=== PATIENT | female | born 1965 | race Caucasian/White ===

== ENCOUNTER 2018-09-28 20:29 | Inpatient (IN) ==
[2018-09-28] MEDS ORDERED: MORPHINE IV ONE (20:45)
[2018-09-28] MEDS ORDERED: ZOFRAN IV ONE (20:45)
[2018-09-28 21:34] LABS: BASO# 0.07 X1000 (0.0-0.2); BASO% 1.8 % (0.0-0.8); EOS# 0.31 X1000 (0.0-0.7); EOS% 7.8 % (0.0-10.0); HEMOGLOBIN 9.4 g/dL (12.0-16.0); IMM GRAN# 0.01 X1000 (0.0-0.04); IMM GRAN% 0.3 % (0.0-0.5); LYMPH# 1.12 X1000 (1.2-3.4); LYMPH% 28.2 % (20.5-51.1); MCH 22.7 PG (27-31); MCHC 31.3 g/dL (33-37); MCV 72.5 FL (81-99); MONO# 0.28 X1000 (0.11-0.59); MONO% 7.1 % (1.7-9.3); MPV 10.3 FL (7.4-10.4); NEUT# 2.18 X1000 (1.4-6.5); NEUT% 54.8 % (42.2-75.2); PLT 419 X1000 (130-400); RBC 4.14 XMIL (4.2-5.4); RDW 22.8 % (11.5-14.5); WBC 3.97 X1000 (4.8-10.8)
[2018-09-28 21:41] LABS: INR 0.89; PROTIME 12.5 Seconds (11.0-16.0); PTT 31.1 Seconds (22.3-41.8)
--- NOTE | 2018-09-28 21:46 | Diag Imaging Result Doc PS360 ---
EXAM: CHEST-PORTABLE 09/28/2018 HISTORY: chest pain TECHNIQUE: AP portable at 0955 COMMENT: There is some atelectasis or fibrosis over both lung bases which was not present on 09/08/2017 and there is some blunting of the right costophrenic angle which was also not present previously. The heart size and pulmonary vascularity remain within normal limits. IMPRESSION: Minimal bibasilar atelectasis versus fibrosis. Small right pleural effusion. Electronically signed by Carlos Manuel Laird 09/28/2018 9:44 PM
[2018-09-28 21:52] LABS: AGAP 10; ALBUMIN 3.2 g/dL (3.5-5.0); ALKALINE PHOSPHATASE 74 U/L (32-104); BUN 8 mg/dL (8-22); CALCIUM 7.5 mg/dL (8.8-10.2); CHLORIDE 106 mmol/L (98-107); CK PROFILE 661 U/L (24-173); COSMO 277; CREATININE 0.8 mg/dL (0.5-0.9); ESTIMATED GFR > 60; GLUCOSE 83 mg/dL (70-104); GOT 20 U/L (10-30); GPT 6 U/L (10-36); POTASSIUM 4.1 mmol/L (3.5-5.1); SODIUM 140 mmol/L (136-145); TCO2 23 mmol/L (25-35); TOTAL BILIRUBIN < 0.15 mg/dL (0.20-1.00); TOTAL PROTEIN 5.9 g/dL (6.3-8.3)
[2018-09-28 22:34] LABS: CK INDEX 0.8 (0.0-2.5); CK-MB 5.05 ng/mL (0.0-5.0)
--- NOTE | 2018-09-28 22:41 | PROVIDER DOCUMENTATION ---
This chart was entered by Maddie West Scribe, acting as scribe for Stefania Lopez MD. HPI-Chest Pain - General Chief Complaint: Chest Pain Stated Complaint: CHEST PAIN Time Seen by Provider: 09/28/18 20:50 Source: patient Allergies/Adverse Reactions: Patient Allergies Allergy/AdvReac Type Severity Reaction Status Date / Time aspirin Allergy Mild RASH Verified 09/08/17 10:49 ketorolac tromethamine * Allergy Mild RASH Verified 09/08/17 10:49 [From Toradol] Home Medications: Home Medication List Medication Instructions Recorded Confirmed Last Taken Type Levothyroxine Sodium 200 mcg PO DAILY 05/06/17 09/08/17 Unknown History LISINOpril [Prinivil] 20 mg PO DAILY 05/10/17 09/08/17 Unknown History Alprazolam 1 mg PO TID PRN 09/08/17 09/08/17 Unknown History Clopidogrel [Plavix] 75 mg PO DAILY 09/08/17 09/08/17 Unknown History Duloxetine [Cymbalta] 60 mg PO DAILY 09/08/17 09/08/17 Unknown History Gabapentin 300 mg PO TID 09/08/17 09/08/17 Unknown History Lisinopril 20 mg PO DAILY #30 tab 09/08/17 Unknown Rx Quetiapine [Seroquel] 200 mg PO DAILY 09/08/17 09/08/17 Unknown History Trazodone [Desyrel] 50 mg PO QHS 09/08/17 09/08/17 Unknown History Ziprasidone [Geodon] 40 mg PO BID 09/08/17 09/08/17 Unknown History - History of Present Illness-CP Nature of Presenting Problem: Pt is 52/F presenting to ED w/ CP that started a couple of hrs [employer]. Pt sts that the pain was L sided and constant, it is rated a 10/10 and sharp. Pt has has SOB and sts that she has been very tired for the last few days. Hx of VA and has 3 stents. Location: reports: substernal Chest Pain Radiation: reports: no radiation Quality of Pain: reports: sharp, stabbing Severity in ED: moderate Onset/Duration: 1-3 hours ago Timing: still present Context/Activities at Onset: reports: none Modifying Factors: improves with: nothing Associated Symptoms: reports: shortness of breath Nitro Today/Relief: no nitro taken today Aspirin Treatment Today: no aspirin today Prior Chest Pain/Cardiac Workup: reports: heart attack Similar Symptoms Previously?: No Recently Seen Here or By Another Healthcare Provider: No Review of Systems - Adult - REVIEW OF SYSTEMS - ADULT Constitutional: reports: no symptoms reported. denies: chills, fever Eyes: reports: no symptoms reported Ears, Nose, Mouth & Throat: reports: no symptoms reported Cardiovascular: reports: chest pain Respiratory: reports: shortness of breath. denies: cough Gastrointestinal: reports: no symptoms reported Genitourinary: reports: no symptoms reported Musculoskeletal: reports: no symptoms reported Integumentary: reports: no symptoms reported Neurological: reports: no symptoms reported. denies: dizziness/vertigo, headache/migraines Psychiatric: reports: no symptoms reported Endocrine: reports: no symptoms reported Hematologic/Lymphatic: reports: no symptoms reported Allergic/Immunologic: reports: no symptoms reported All Other Systems: Reviewed and Negative Past History - Adult - PAST MEDICAL HISTORY-ADULT Review of Records: reports: Old Records Reviewed, Nursing Assessment Review, Medications Reviewed, Social history reviewed & non-contributory. Cardiovascular: reports: blood clots, CAD, CHF Psychiatric: reports: anxiety Endocrine/Immune: reports: cancer (thyroid), thyroid disorder - PRIOR SURGERIES/PROCEDURES Surgical/Procedure History: reports: appendectomy, cholecystectomy, cardiac stent, indwelling device (port-a-cath), other (thyroidecomty) - IMMUNIZATION STATUS Childhood Immunizations: See Nurse Assessment Flu Vaccine: See Nurse Assessment - FAMILY HISTORY Family History: reviewed, not pertinent - SOCIAL HISTORY Smoking: cigarettes, less than 1 pack/day Provider spent 3-5 mins advising pt. on dangers of tobacco.: Discussed manners to quit use, and f/u contacts for add'l counseling. Alcohol Use Frequency: never Living Situation: family Physical Exam-General - PHYSICAL EXAM-ADULT Initial Vital Signs Reviewed: Yes - CONSTITUTIONAL General Appearance: appears well, alert, moderate distress - EYES Eyes: PERRL/EOMI, pink conjunctivae - HEAD, EARS, NOSE, MOUTH & THROAT HENMT: normocephalic/atraumatic, moist mucous membranes, normal ENT inspection, TMs normal, pharynx normal - NECK Neck: non-tender, full range of motion, supple, normal inspection - RESPIRATORY Respiratory: lungs clear - CARDIOVASCULAR Cardiovascular: regular rate, rhythm - GASTROINTESTINAL (ABDOMEN) Abdominal Exam: non tender, soft - MUSCULOSKELETAL Extremity: normal range of motion, non-tender, normal gait, normal inspection - SKIN Integumentary: normal color, warm/dry - NEUROLOGIC Neurologic: grossly normal - PSYCHIATRIC Psych/Mental Status: normal mood/affect, normal thought content, normal thought process, oriented x 3 - HEART Score HEART Score: ECG: Normal HEART Score: Age: 45-65 Years Progress - PLAN OF CARE/RESULTS Progress/Plan/Lab Results: Vital Signs - 8 hr 09/28/18 20:15 Temperature 98.7 F Pulse Rate 87 Respiratory Rate 20 Blood Pressure 113/77 O2 Sat by Pulse Oximetry 86 L Laboratory Results - last 24 hr 09/28/18 09/28/18 09/28/18 21:10 21:10 21:10 WBC 3.97 L RBC 4.14 L Hgb 9.4 L Hct 30.0 L MCV 72.5 L MCH 22.7 L MCHC 31.3 L RDW Std Deviation 22.8 H Plt Count 419 H MPV 10.3 Immature Gran % (Auto) 0.3 Neut % (Auto) 54.8 Lymph % (Auto) 28.2 Gaines % (Auto) 7.1 Eos % (Auto) 7.8 Baso % (Auto) 1.8 H Immature Gran # (Auto) 0.01 Neut # (Auto) 2.18 Lymph # (Auto) 1.12 L Gaines # (Auto) 0.28 Eos # (Auto) 0.31 Baso # (Auto) 0.07 Segmented Neutrophils Not Reportable PT INR PTT (Actin FS) Sodium 140 Potassium 4.1 Chloride 106 Carbon Dioxide 23 L Anion Gap 10 BUN 8 Creatinine 0.8 Estimated GFR/1.73 m2 > 60 BUN/Creatinine Ratio 10 Glucose 83 Calculated Osmolality 277 Calcium 7.5 L Total Bilirubin < 0.15 L AST 20 ALT 6 L Alkaline Phosphatase 74 Creatine Kinase 661 H Creatine Kinase Index 0.8 CK-MB (CK-2) 5.05 H Troponin T Yle-H-Rogzqydqfnv Pept 261 H Total Protein 5.9 L Albumin 3.2 L Globulin 3.0 Albumin/Globulin Ratio 1.0 09/28/18 09/28/18 21:10 21:10 WBC RBC Hgb Hct MCV MCH MCHC RDW Std Deviation Plt Count MPV Immature Gran % (Auto) Neut % (Auto) Lymph % (Auto) Gaines % (Auto) Eos % (Auto) Baso % (Auto) Immature Gran # (Auto) Neut # (Auto) Lymph # (Auto) Gaines # (Auto) Eos # (Auto) Baso # (Auto) Segmented Neutrophils PT 12.5 INR 0.89 PTT (Actin FS) 31.1 Sodium Potassium Chloride Carbon Dioxide Anion Gap BUN Creatinine Estimated GFR/1.73 m2 BUN/Creatinine Ratio Glucose Calculated Osmolality Calcium Total Bilirubin AST ALT Alkaline Phosphatase Creatine Kinase Creatine Kinase Index CK-MB (CK-2) Troponin T < 0.010 Xzv-S-Dldmidhzfpi Pept Total Protein Albumin Globulin Albumin/Globulin Ratio Orders Category Date Time Status Cardiac Monitoring DIRECTED Care 09/28/18 20:21 Active Oxygen Therapy- ED Nursing DIRECTED Care 09/28/18 20:21 Active Saline Loc NOW Care 09/28/18 20:21 Active CHEST-PORTABLE [RAD] Stat Exams 09/28/18 20:30 Completed CBC WITH ELECTRONIC DIFF [HEME] Stat Lab 09/28/18 21:10 Completed CK PROFILE [SP CHEM] Stat Lab 09/28/18 21:10 Completed COMPREHENSIVE METABOLIC PANEL [CHEM] Stat Lab 09/28/18 21:10 Completed PRO B-NATRIURETIC PEPTIDE Stat Lab 09/28/18 21:10 Completed PROTIME WITH INR [COAG] Stat Lab 09/28/18 21:10 Completed PTT [COAG] Stat Lab 09/28/18 21:10 Completed TROPONIN T Stat Lab 09/28/18 21:10 Completed Morphine Med 09/28/18 20:45 Discontinued 4 mg IV NOW ONE Ondansetron [Zofran] Med 09/28/18 20:45 Discontinued 4 mg IV NOW ONE CP/SOB/Palp >45 yrs of Age Stat Oth 09/28/18 20:19 Ordered EKG [EKG] Stat Ther 09/28/18 20:21 Ordered Result Diagrams: 09/28/18 21:10 09/28/18 21:10 - REASSESSMENT Reassessment #1 Time Reassessed: 22:34 Status: worsening Reassessment Comment: was feeling better after morphine, but now pain is returning. Reassessment #2 Time Reassessed: 22:38 (I have spoken with Dr. Hoskins and we will admit for precaution) - EKG 1 Time of EKG reading by physician:: 20:12 EKG Read and Signed by:: Stefania Lopez EKG Interpretation (*Must complete 3 of following elements*): Normal (Normal sinus rhythm, normal ECG) Rate: 85 Rhythm: Sinus [place]: normal QRS: normal - CONSULTS/PCP/HOSPITALIST Notification #1 *Consult/PCP/Hospitalist*: [place] Time Discussed: 22:36 (will admit ) Consult Disposition: Admit Departure - Departure Date of Disposition Decision: 09/28/18 Time of Disposition Decision: 22:39 DIAGNOSIS: Chest pain Qualifiers: Chest pain type: precordial pain Qualified Code(s): R07.2 - Precordial pain Disposition: ADMITTED INPATIENT 09 Certified Medical Emergency: Emergent Condition: Fair Referrals and Follow-Ups: None,PCP [Primary Care Provider] - - Critical Care Note This patient required my direct & personal management of CC.: No Attestation - Physician/ PHONG Attestation The physician spent face to face time with patient:: Yes Advanced Practice Provider documentation review:: Supervising physician onsite and consulted in the evaluation and care of this patient. The physician did have a face to face encounter with the patient. This chart was documented by the indicated scribe, (Maddie West, Scribe) and accurately reflects the services I performed and decisions made by me, Stefania Lopez MD, as attested by the provider's signature.
[2018-09-28] MEDS ORDERED: MORPHINE IV PRN (22:43)
[2018-09-28] MEDS ORDERED: ZOFRAN IV PRN (22:43)
--- NOTE | 2018-09-28 23:41 | EKG Report ---
Test Performed on : 09/28/2018 8:12:50 PM Test Reason : chest pain Blood Pressure : / mmHG Vent. Rate : 085 BPM Atrial Rate : 085 BPM P-R Int : 180 ms QRS Dur : 080 ms QT Int : 380 ms P-R-T Axes : 076 058 084 degrees QTc Int : 452 ms Normal sinus rhythm. Normal ECG When compared with ECG of 08-SEP-2017 12:28, Nonspecific T wave abnormality, improved in Anterolateral leads Unconfirmed Result
[2018-09-29] MEDS: MORPHINE IV PRN ×6 (00:49→12:44)
[2018-09-29] MEDS: NITROGLYCERIN SL PRN (00:50)
[2018-09-29] MEDS: ZOFRAN IV PRN ×2 (06:10→10:20)
[2018-09-29] MEDS ORDERED: XANAX PO PRN ×2 (07:09→07:15)
[2018-09-29] MEDS: SYNTHROID PO SCH (07:39)
[2018-09-29 07:51] LABS: HEMATOCRIT 29.7 % (37.0-47.0); MCH 22.1 PG (27-31); MCHC 30.3 g/dL (33-37); MPV 9.9 FL (7.4-10.4); RBC 4.07 XMIL (4.2-5.4); RDW 23.1 % (11.5-14.5); WBC 4.05 X1000 (4.8-10.8)
[2018-09-29] MEDS: GEODON PO SCH ×2 (08:09→21:21)
[2018-09-29] MEDS: PLAVIX PO SCH (08:09)
[2018-09-29] MEDS: PRINIVIL PO SCH (08:09)
[2018-09-29] MEDS: CYMBALTA PO SCH (08:09)
[2018-09-29] MEDS: NEURONTIN PO SCH ×3 (08:09→21:21)
[2018-09-29 09:20] LABS: AGAP 10; ALBUMIN 3.2 g/dL (3.5-5.0); BUN 7 mg/dL (8-22); CALCIUM 7.3 mg/dL (8.8-10.2); CHLORIDE 106 mmol/L (98-107); COSMO 276; CREATININE 0.7 mg/dL (0.5-0.9); ESTIMATED GFR > 60; GLUCOSE 78 mg/dL (70-104); POTASSIUM 4.1 mmol/L (3.5-5.1); SODIUM 140 mmol/L (136-145); TCO2 23 mmol/L (25-35); TOTAL BILIRUBIN < 0.15 mg/dL (0.20-1.00); TOTAL PROTEIN 5.8 g/dL (6.3-8.3)
[2018-09-29 09:21] LABS: ALKALINE PHOSPHATASE 74 U/L (32-104); GOT 20 U/L (10-30); GPT 6 U/L (10-36); MAGNESIUM 1.8 mg/dL (1.5-2.7)
[2018-09-29 09:34] LABS: CK INDEX 0.7 (0.0-2.5); CK-MB 4.3 ng/mL (0.0-5.0)
--- NOTE | 2018-09-29 10:04 | HISTORY AND PHYSICAL ---
PRIMARY CARE PHYSICIAN: None. CHARGE AIDE: Dr. Joseph in [place], [place]. CHIEF COMPLAINT: Chest pain for a couple of hours prior to arriving. HISTORY OF PRESENTING ILLNESS: This is a 52-year-old, female who presented to [facility] with complaints of left-sided chest pain that began a couple of hours prior to arrival. Described it as a constant sharp pain radiating to her jaw and left arm, rated it a 10/10 for pain. Was short of breath and had been having fatigue. Her workup in the emergency room showed the first 2 sets of troponins were negative. She did have a bump in her creatine kinase at 661 with a CK-MB of 5.05. Repeat showed a creatine kinase of 580 so she was admitted for further evaluation and treatment. PAST MEDICAL HISTORY: Thyroid cancer, hypothyroidism, chronic anemia, coronary artery disease, status post an [place]. PAST SURGICAL HISTORY: Partial thyroidectomy, cholecystectomy, appendectomy, hysterectomy, a fundoplication, heart stent placement x3, and Port-A-Cath placement. FAMILY HISTORY: Reviewed and noncontributory. SOCIAL HISTORY: She currently lives with family. Smokes a pack of cigarettes a day and has done so for the past 20 years. Denies any alcohol or illicit drug use. ALLERGIES: Aspirin and Ketoralac. HOME MEDICATIONS: Alprazolam 1 mg p.o. t.i.d. p.r.n., Plavix 75 mg p.o. daily, Cymbalta 60 mg p.o. daily, gabapentin 300 mg p.o. t.i.d., levothyroxine 200 mcg p.o. daily, lisinopril 20 mg p.o. daily, Seroquel 200 mg p.o. daily, Desyrel 50 mg p.o. at bedtime, and Geodon 40 mg p.o. b.i.d. LABORATORY DATA: White blood cell count of 3.97, hemoglobin 9.4, hematocrit 30, and platelets 419,000. PT and INR at 12.5 and 0.89. Sodium 140, potassium 4.1, chloride 106, CO2 of 23, BUN of 8, creatinine 0.8, glucose 83, magnesium 1.8. Total bilirubin less than 0.15. Creatine kinase of 661, CK-MB of 5.05, with a troponin of less than 0.010. Repeat this morning showed a creatine kinase of 580, CK-MB is pending, and troponin of less than 0.010. TSH of 100. Chest x-ray shows minimal basilar atelectasis versus fibrosis with small right pleural effusion. EKG showed normal sinus rhythm at 85. REVIEW OF SYSTEMS: She denied any fever, chills, blurred vision, dizziness. She was positive for chest pain that radiated to the left side of her jaw and left arm, shortness of breath, fatigue. Denied any abdominal pain, constipation, diarrhea, burning or hurting with urination. PHYSICAL EXAMINATION: VITAL SIGNS: On arrival, she had a temperature of 98.7 degrees, pulse 87, respirations 20, blood pressure 113/77, saturating 86% on room air. Currently, she is saturating 97% on 2 L via nasal cannula. GENERAL: This is a 52-year-old, female who is lying in the bed and answers questions appropriately. HEENT: Normocephalic, atraumatic. Normal ENT inspection. Oropharynx and nares are clear. Eyes: Pupils are equal, round, and reactive to light and accommodation. Extraocular movements are intact. NECK: Normal inspection. Normal range of motion. LUNGS: Clear to auscultation bilaterally with equal lung expansion and chest wall movement. HEART: With regular rate and rhythm. No murmurs, rubs, or gallops. ABDOMEN: Soft, nontender, nondistended. Bowel sounds are present x4 quadrants. MUSCULOSKELETAL: She has 5/5 strength x4 extremities. NEUROLOGICAL: The cranial nerves 2-12 appear grossly intact. ASSESSMENT: 1. Chest pain. 2. Hypoxemia. 3. Tobacco abuse. 4. History of coronary artery disease, status post a myocardial infarction. PLAN: She was admitted to the medical unit, placed on telemetry, healthy heart diet. We will recheck serial cardiac enzymes this a.m. We will hold her n.p.o. after midnight for a Cardiolite GXT in the a.m. Continue home medications as previously identified. Further orders after seen by attending. Dictated by LESLEY Espinosa for Manfred Hoskins MD cc: LESLEY Espinosa MD
--- NOTE | 2018-09-29 18:55 | HISTORY AND PHYSICAL ---
ADDENDUM: Patient seen and examined by myself. Full note dictated and discussed with nurse practitioner. Patient presented to the hospital with chest pain, left-sided, 10/10 in intensity. Does have a history of SD and 3 stents, although she notes this pain is somewhat different. We are going to admit her to the hospital, rule out SD. If enzymes are negative, we are going to schedule a stress test. Discussed with patient the importance of stopping smoking. cc: Manfred Hoskins MD
[2018-09-29] MEDS: SEROQUEL PO SCH (21:21)
[2018-09-30] MEDS: DESYREL PO SCH ×2 (03:21→20:40)
--- NOTE | 2018-09-30 06:38 | EKG Report ---
Test Performed on : 09/30/2018 06:19:40 AM Test Reason : Chest Pain Blood Pressure : / mmHG Vent. Rate : 048 BPM Atrial Rate : 048 BPM P-R Int : 222 ms QRS Dur : 090 ms QT Int : 470 ms P-R-T Axes : 061 027 083 degrees QTc Int : 419 ms Sinus bradycardia. with 1st degree AV block. Nonspecific T wave abnormality Abnormal ECG When compared with ECG of 28-SEP-2018 20:12, (Unconfirmed) NH interval has increased Vent. rate has decreased BY 37 BPM Confirmed by Ventura Anne MD ([id number]) on 10/23/2018 3:34:17 PM
[2018-09-30] MEDS: SYNTHROID PO SCH ×2 (06:51→07:44)
[2018-09-30] MEDS: NS 1,000 ML IV SCH ×2 (07:44→14:20)
[2018-09-30] MEDS: NEURONTIN PO SCH ×3 (08:10→16:45)
[2018-09-30] MEDS: PLAVIX PO SCH (08:10)
[2018-09-30] MEDS: CYMBALTA PO SCH (08:10)
[2018-09-30] MEDS: GEODON PO SCH ×2 (08:10→20:40)
[2018-09-30] MEDS: PRINIVIL PO SCH (08:11)
--- NOTE | 2018-09-30 18:56 | PROGRESS NOTE ---
DATE: 09/30/2018 SUBJECTIVE: The patient has no complaints. She is awake, alert. She is still having some chest pain. OBJECTIVE: Vital signs reviewed. Temperature 97.5 degrees, pulse 58. BP currently 80/46, but has been as low as 75/50.HEENT: Normocephalic. Neck supple. Cardiovascular: Regular rate. Chest clear, nonlabored. Abdomen is soft, nondistended. Extremities: Moves all extremities. ASSESSMENT AND PLAN: 1. Hypotension of undetermined origin. She does not take blood pressure medications. 2. Hypothyroidism. We have increased the patient's Synthroid, as her TSH is 134. Not sure that she has been taking her Synthroid at home. 3. Chest pain. We had planned on a stress test, but given her low blood pressures we certainly do not need to do a stress test this morning. We will continue to follow. cc: Manfred Hoskins MD
[2018-09-30] MEDS: SEROQUEL PO SCH (20:39)
[2018-10-01] MEDS: NITROGLYCERIN SL PRN (03:16)
[2018-10-01 05:31] LABS: HEMATOCRIT 27.3 % (37.0-47.0); HEMOGLOBIN 8.2 g/dL (12.0-16.0); MCH 22.2 PG (27-31); MPV 10.4 FL (7.4-10.4); RBC 3.69 XMIL (4.2-5.4); RDW 23.2 % (11.5-14.5); WBC 4.78 X1000 (4.8-10.8)
[2018-10-01] MEDS: SYNTHROID PO SCH (06:11)
[2018-10-01 06:22] LABS: AGAP 9; ALBUMIN 2.9 g/dL (3.5-5.0); ALKALINE PHOSPHATASE 63 U/L (32-104); BUN 9 mg/dL (8-22); CALCIUM 7.7 mg/dL (8.8-10.2); CHLORIDE 109 mmol/L (98-107); COSMO 283; CREATININE 0.8 mg/dL (0.5-0.9); ESTIMATED GFR > 60; GLUCOSE 82 mg/dL (70-104); GOT 17 U/L (10-30); GPT 5 U/L (10-36); MAGNESIUM 1.7 mg/dL (1.5-2.7); POTASSIUM 3.9 mmol/L (3.5-5.1); SODIUM 143 mmol/L (136-145); TCO2 25 mmol/L (25-35); TOTAL BILIRUBIN < 0.15 mg/dL (0.20-1.00); TOTAL PROTEIN 5.6 g/dL (6.3-8.3)
[2018-10-01] MEDS ORDERED: SYNTHROID PO ONE (07:01)
[2018-10-01] MEDS: NEURONTIN PO SCH ×3 (08:54→16:22)
[2018-10-01] MEDS: PLAVIX PO SCH (08:54)
[2018-10-01] MEDS: GEODON PO SCH ×2 (08:54→20:17)
[2018-10-01] MEDS: CYMBALTA PO SCH (08:54)
[2018-10-01] MEDS: NORCO-5 PO PRN ×2 (08:55→16:22)
[2018-10-01] MEDS: PRINIVIL PO SCH (08:57)
[2018-10-01] MEDS ORDERED: LEXISCAN ONE (11:00)
--- NOTE | 2018-10-01 11:45 | GRADED EXERCISE REPORT ---
DATE: 10/01/2018 LEXISCAN: INDICATION: Chest pain. REFERRING PHYSICIAN: I think is Dr. Hoskins. FINDINGS: Baseline heart rate 59, baseline blood pressure 147/98. EKG really had no ischemic changes. She did develop chest pain similar to her previous chest pain during the test. There were no significant ST changes consistent with ischemia. Peak heart rate was 69, blood pressure 145/96. The test was felt to be clinically positive but electrically negative. Myocardial perfusion reported separately. cc: Bonilla Emery MD
[2018-10-01] MEDS: XANAX PO PRN (13:47)
--- NOTE | 2018-10-01 13:48 | Diag Imaging Result Document ---
PROCEDURE NAME: MYOCARDIAL PERF SCAN, STR/REST - 10/01/2018 INDICATION: Chest pain. PROCEDURES PERFORMED: 1. Lexiscan stress (results dictated separately). 2. One-day stress rest myocardial perfusion imaging. PROCEDURE IN DETAIL: Ms. Nath was brought to the nuclear laboratory and had a resting study with injection of 10.8 mCi of technetium-99m sestamibi with the usual imaging protocol utilized. Subsequently, she was brought back and had a Lexiscan stress. At peak stress, she was injected with 30.7 mCi of technetium-99m sestamibi with the usual imaging protocol utilized. FINDINGS: 1. Lexiscan stress results dictated separately. 2. TID ratio of 0.79. 3. No evidence of abnormal extracardiac uptake. 4. Perfusion imaging demonstrates normal homogenous uptake of radiotracer throughout the myocardial segments. 5. Normal ejection fraction of 72%. End-diastolic volume 72, end-systolic volume 20. Normal wall motion is noted on this study. cc: MD Nata Yanez CRNP
--- NOTE | 2018-10-01 19:01 | PROGRESS NOTE ---
DATE: 10/01/2018 SUBJECTIVE: Patient is still having persistent chest pain. States it has been unlaboring since admission. Blood pressures are much improved. PHYSICAL EXAMINATION: Vital Signs: Reviewed. Temp 97.6 degrees, pulse 68, respiratory 18, BP 110/68. General: The patient is in no respiratory distress. She is lying in the bed. She is awake, alert, oriented. HEENT: Normocephalic. Neck: Supple. Cardiovascular: Regular rate. Chest: Clear. Abdomen: Soft. Extremities: Moves all extremities. ASSESSMENT: 1. Hypotension appears resolved. 2. Chest pain. Stress tests have been negative. 3. Chronic pain. Discussed with patient she does not need to continue on morphine as her enzymes and/or GXT are negative. 4. Tobacco abuse. 5. Sedation. When the patient was down for her GXT, the staff noted a empty bottle of the patient's home medications, Haldol. Unclear as to when she took this or if she took. This certainly could have caused her blood pressures to be low. We will continue to follow. Hopefully, she can improve and discharge home soon. cc: Manfred Hoskins MD
[2018-10-01] MEDS: SEROQUEL PO SCH (20:17)
[2018-10-01] MEDS: DESYREL PO SCH (20:17)
[2018-10-02] MEDS: SYNTHROID PO SCH (06:11)
--- NOTE | 2018-10-02 09:12 | Diag Imaging Result Doc PS360 ---
EXAM: CT THORAX W/CONTRAST INDICATION: pneumonia TECHNIQUE: This exam was performed using automated exposure control, adjustment of mA or kV according to patient size, and/or use of iterative reconstruction technique. COMPARISON: CTA chest dated 09/08/2017 FINDINGS: Upon injection of the small jugular IV catheter, contrast infiltrated into the soft tissues. No visible IV contrast is seen. As such, this is essentially an unenhanced study. There is a dense airspace consolidation in the left lower lobe indicating pneumonia. There is also likely a component of atelectasis. There is bronchial mucosal thickening and intermittent bronchial mucous plugging in this region as well. There is milder atelectasis and/or infiltrate in the lingula. There is a small left pleural effusion with thickening at its periphery indicating that it may be loculated. There are a few nodular densities in the right lung. Most of these are pleural-based and are stable. However, there is a nodular density at the right lung apex that measures slightly larger than the previous study. It measures up to 1.1 x 0.7 cm axially (1.0 x 0.4 cm previously). Although this may be an inflammatory process, given the increase in size since last year, correlation with PET scan should be considered. There are a couple of calcified granulomas in the right lower lobe and left upper lobe. There is a stable prominent hiatal hernia. There is a small to moderate-sized pericardial effusion that is approximately stable. There are calcified mediastinal and hilar lymph nodes indicating prior granulomatous disease. Limited views of the upper abdomen reveals a small noncalcified intrarenal stone on the left. IMPRESSION: 1.Dense airspace consolidation at the left lung base mainly in the left lower lobe indicating pneumonia with a likely component of atelectasis as well. 2.Left lower lobe bronchial mucosal thickening and intermittent mucous plugging. 3.Very small left pleural effusion that may be partially loculated. 4.Several noncalcified nodular densities on the right with one being slightly larger than the previous study. Please see above discussion. 5.Approximately stable pericardial effusion. 6.Other incidental/nonacute findings detailed above. Electronically signed by Ryan Tubbs 10/02/2018 9:10 AM
[2018-10-02] MEDS: NORCO-5 PO PRN ×2 (09:23→20:52)
[2018-10-02] MEDS: PLAVIX PO SCH (09:23)
[2018-10-02] MEDS: CYMBALTA PO SCH (09:23)
[2018-10-02] MEDS: PRINIVIL PO SCH (09:24)
[2018-10-02] MEDS: GEODON PO SCH ×2 (09:24→20:53)
[2018-10-02] MEDS: NEURONTIN PO SCH ×3 (09:24→16:23)
[2018-10-02] MEDS: XANAX PO PRN ×2 (09:25→20:57)
[2018-10-02 09:37] LABS: HEMATOCRIT 29.2 % (37.0-47.0); HEMOGLOBIN 8.9 g/dL (12.0-16.0); MCH 22.8 PG (27-31); MCHC 30.5 g/dL (33-37); MCV 74.7 FL (81-99); MPV 10.1 FL (7.4-10.4); RBC 3.91 XMIL (4.2-5.4); RDW 23.6 % (11.5-14.5); WBC 5.82 X1000 (4.8-10.8)
[2018-10-02 09:43] LABS: AGAP 11; ALBUMIN 3.3 g/dL (3.5-5.0); ALKALINE PHOSPHATASE 80 U/L (32-104); BUN 7 mg/dL (8-22); CALCIUM 7.7 mg/dL (8.8-10.2); CHLORIDE 104 mmol/L (98-107); COSMO 275; CREATININE 0.8 mg/dL (0.5-0.9); ESTIMATED GFR > 60; GLUCOSE 82 mg/dL (70-104); GOT 30 U/L (10-30); GPT 12 U/L (10-36); MAGNESIUM 1.7 mg/dL (1.5-2.7); POTASSIUM 3.7 mmol/L (3.5-5.1); SODIUM 139 mmol/L (136-145); TCO2 24 mmol/L (25-35); TOTAL BILIRUBIN < 0.15 mg/dL (0.20-1.00); TOTAL PROTEIN 6.5 g/dL (6.3-8.3)
--- NOTE | 2018-10-02 19:17 | PROGRESS NOTE ---
DATE: 10/02/2018 SUBJECTIVE: Patient is still very tired, fatigued, still having persistent chest pain. PHYSICAL EXAMINATION: Vital Signs: Reviewed. Temperature 98 degrees, pulse 74, respiratory rate 18, BP 103/62. General: Patient is awake, currently in no distress. HEENT: WNL. Neck: Supple. Cardiovascular: Regular rate. Chest: clear. Extremities: Moves all extremities. ASSESSMENT: 1. Hypothyroidism. Patient's TSH actually has continued to elevate. She was 80, currently is 130, despite increasing the dose of her Synthroid. 2. Chest pains. It certainly does not appear to be cardiac in origin as she has had negative enzymes and a negative stress test. We are going to check a CT scan. 3. Chronic tobacco abuse. cc: Manfred Hoskins MD MTDD
[2018-10-02] MEDS: DESYREL PO SCH (20:53)
[2018-10-02] MEDS: SEROQUEL PO SCH (20:53)
[2018-10-03] MEDS: SYNTHROID PO SCH (06:24)
[2018-10-03] MEDS ORDERED: SODIUM CHLORIDE 0.9% INJ ONE (07:56)
[2018-10-03] MEDS: NEURONTIN PO SCH ×3 (08:43→20:39)
[2018-10-03] MEDS: PRINIVIL PO SCH (08:43)
[2018-10-03] MEDS: PLAVIX PO SCH (08:43)
[2018-10-03] MEDS: CYMBALTA PO SCH (08:43)
[2018-10-03] MEDS: GEODON PO SCH ×2 (08:43→20:34)
[2018-10-03] MEDS: NORCO-5 PO PRN ×2 (08:50→20:34)
[2018-10-03] MEDS: XANAX PO PRN ×2 (08:50→20:34)
[2018-10-03] MEDS: ROCEPHIN 1 GM in NS 50 ML IV SCH (09:13)
[2018-10-03] MEDS ORDERED: SYNTHROID IV ONE (12:00)
[2018-10-03] MEDS: DESYREL PO SCH (20:34)
[2018-10-03] MEDS: SEROQUEL PO SCH (20:34)
--- NOTE | 2018-10-03 22:15 | PROGRESS NOTE ---
DATE: 10/03/2018 SUBJECTIVE: Patient notes she still feels terrible, tired, fatigued, weak, still having cough, congestion, shortness of breath. She has not really been out of bed without insistence by the staff. PHYSICAL EXAMINATION: Temperature 98 degrees, pulse 76, respiratory 18, BP 103/62.General: Patient is awake, pleasant. She is in no respiratory distress, although does have a cough. Respiratory: Has decreased breath sounds bilaterally but this appears to be more intentional, as she is not deep breathing. HEENT: Normocephalic. Neck: Supple. Cardiovascular: Regular rate. Chest: Decreased but equal. No crackles. No wheezing. Abdomen: Soft, nondistended. Extremities: Moves all extremities. ASSESSMENT: 1. Hypothyroidism. Her TSH actually has gone up despite increasing her Synthroid. 2. Pneumonia. 3. Hypoxic respiratory failure. 4. Chronic tobacco abuse. 5. Known coronary artery disease. PLAN: We will continue patient in the hospital. We will add incentive spirometry, Acapella treatments. Continue oxygen. Will add antibiotics, as she has pneumonia. We will continue to increase her Synthroid, and we will follow. cc: Manfred Hoskins MD
[2018-10-04] MEDS: SYNTHROID PO SCH ×2 (05:53→06:13)
[2018-10-04 06:54] LABS: AGAP 8; ALKALINE PHOSPHATASE 70 U/L (32-104); BUN 9 mg/dL (8-22); CALCIUM 7.8 mg/dL (8.8-10.2); CHLORIDE 108 mmol/L (98-107); COSMO 281; CREATININE 0.7 mg/dL (0.5-0.9); ESTIMATED GFR > 60; GLUCOSE 86 mg/dL (70-104); GOT 22 U/L (10-30); GPT 9 U/L (10-36); MAGNESIUM 1.9 mg/dL (1.5-2.7); POTASSIUM 4.2 mmol/L (3.5-5.1); SODIUM 142 mmol/L (136-145); TCO2 26 mmol/L (25-35); TOTAL BILIRUBIN < 0.15 mg/dL (0.20-1.00); TOTAL PROTEIN 5.8 g/dL (6.3-8.3)
[2018-10-04 08:16] LABS: HEMATOCRIT 24.2 % (37.0-47.0); HEMOGLOBIN 7.2 g/dL (12.0-16.0); MCH 22.4 PG (27-31); MCHC 29.8 g/dL (33-37); MCV 75.4 FL (81-99); MPV 10.6 FL (7.4-10.4); RBC 3.21 XMIL (4.2-5.4); RDW 23.6 % (11.5-14.5); WBC 4.32 X1000 (4.8-10.8)
[2018-10-04] MEDS ORDERED: SODIUM CHLORIDE 0.9% INJ ONE (08:36)
[2018-10-04] MEDS: CYMBALTA PO SCH (09:10)
[2018-10-04] MEDS: ROCEPHIN 1 GM in NS 50 ML IV SCH (09:11)
[2018-10-04] MEDS: PRINIVIL PO SCH (09:12)
[2018-10-04] MEDS: GEODON PO SCH ×2 (09:12→20:24)
[2018-10-04] MEDS: NEURONTIN PO SCH ×3 (09:12→20:25)
[2018-10-04] MEDS: PLAVIX PO SCH (09:12)
[2018-10-04] MEDS: ZITHROMAX PO SCH (11:01)
[2018-10-04] MEDS: NORCO-5 PO PRN ×2 (11:01→20:25)
[2018-10-04] MEDS: XANAX PO PRN ×2 (13:54→20:25)
[2018-10-04] MEDS ORDERED: SYNTHROID IV ONE (16:00)
--- NOTE | 2018-10-04 18:18 | PROGRESS NOTE ---
DATE: 10/04/2018 SUBJECTIVE: The patient notes she is still feeling tired, fatigued. Denies any chest pains or palpitation. Denies any fevers. Denies nausea, vomiting. PHYSICAL EXAMINATION: Vital Signs: Reviewed. Temp 97.9 degrees, pulse 85, respiratory rate 18, BP 109/73. General: The patient is awake. She is in no current respiratory distress. HEENT: Normocephalic. Neck: Supple. Cardiovascular: Regular rate. Chest: Clear. Abdomen: Soft. Extremities: Moves all extremities. ASSESSMENT: 1. Pneumonia. 2. Hypothyroidism. TSH actually started to improve. It is currently down to 84. We will continue Synthroid. We will give her another dose of IV Synthroid this afternoon. Continue Rocephin. Continue to hold her Xanax and her morphine. Again, discussed with the patient the perils of smoking. PLAN: We will continue in the hospital. Continue to replace her levothyroxine. Continue antibiotics. Further orders as needed. cc: Manfred Hoskins MD MTDD
[2018-10-04] MEDS: SEROQUEL PO SCH (20:24)
[2018-10-04] MEDS: DESYREL PO SCH (20:25)
[2018-10-05] MEDS: SYNTHROID PO SCH (06:12)
[2018-10-05 06:30] LABS: AGAP 10; ALBUMIN 2.8 g/dL (3.5-5.0); ALKALINE PHOSPHATASE 69 U/L (32-104); BUN 12 mg/dL (8-22); CALCIUM 7.7 mg/dL (8.8-10.2); CHLORIDE 109 mmol/L (98-107); COSMO 284; CREATININE 0.9 mg/dL (0.5-0.9); ESTIMATED GFR > 60; GLUCOSE 90 mg/dL (70-104); GOT 45 U/L (10-30); GPT 23 U/L (10-36); MAGNESIUM 1.9 mg/dL (1.5-2.7); SODIUM 143 mmol/L (136-145); TCO2 24 mmol/L (25-35); TOTAL BILIRUBIN < 0.15 mg/dL (0.20-1.00); TOTAL PROTEIN 5.7 g/dL (6.3-8.3)
[2018-10-05 06:35] LABS: HEMATOCRIT 22.7 % (37.0-47.0); HEMOGLOBIN 6.7 g/dL (12.0-16.0); MCH 22.2 PG (27-31); MCHC 29.5 g/dL (33-37); MCV 75.2 FL (81-99); MPV 10.4 FL (7.4-10.4); RBC 3.02 XMIL (4.2-5.4); RDW 23.7 % (11.5-14.5); WBC 3.3 X1000 (4.8-10.8)
[2018-10-05] MEDS ORDERED: NS 500 ML IV ONE (09:15)
[2018-10-05] MEDS ORDERED: BENADRYL PO ONE (09:15)
[2018-10-05] MEDS ORDERED: SODIUM CHLORIDE 0.9% INJ ONE (09:17)
[2018-10-05] MEDS: PLAVIX PO SCH (09:23)
[2018-10-05] MEDS: GEODON PO SCH ×2 (09:23→21:28)
[2018-10-05] MEDS: NEURONTIN PO SCH ×3 (09:23→21:28)
[2018-10-05] MEDS: PRINIVIL PO SCH (09:23)
[2018-10-05] MEDS: CYMBALTA PO SCH (09:24)
[2018-10-05] MEDS: ZITHROMAX PO SCH (09:24)
[2018-10-05] MEDS: ROCEPHIN 1 GM in NS 50 ML IV SCH (09:25)
[2018-10-05] MEDS: NORCO-5 PO PRN ×2 (09:32→17:58)
[2018-10-05] MEDS: PRILOSEC PO SCH (11:58)
[2018-10-05] MEDS: CARAFATE PO SCH ×3 (11:58→21:27)
[2018-10-05] MEDS: XANAX PO PRN (12:14)
[2018-10-05] MEDS ORDERED: SYNTHROID IV ONE (14:17)
--- NOTE | 2018-10-05 15:34 | Diag Imaging Result Doc PS360 ---
CHEST-2 VIEWS - 10/05/2018 INDICATION: hypoxia COMPARISON: 09/28/2018 FINDINGS: There is a trace left basilar pleural effusion. There is faint left lower lobe infiltrate. Heart size is normal. IMPRESSION: Faint left lower lobe infiltrate which may represent pneumonia or edema. Trace left pleural effusion. Electronically signed by Han Ribeiro 10/05/2018 3:32 PM
--- NOTE | 2018-10-05 15:35 | Diag Imaging Result Doc PS360 ---
KUB ABDOMEN - 10/05/2018 INDICATION: pain COMPARISON: 05/10/2017 FINDINGS: There is moderate diffuse constipation. No bowel obstruction or free air. IMPRESSION: Moderate constipation. Electronically signed by Han Ribeiro 10/05/2018 3:33 PM
--- NOTE | 2018-10-05 15:43 | PROGRESS NOTE ---
DATE: 10/05/2018 SUBJECTIVE: Patient notes that she is starting to feel a little bit better. Chest pain is resolved. Still has some cough. Still has lots of fatigue and tiredness. PHYSICAL EXAMINATION: Vital Signs: Reviewed. Temperature 97.9 degrees, pulse 85, respiratory rate 18, BP 108/73. General: Patient is awake, alert. She is in no current respiratory distress. HEENT: Normocephalic. Neck: Supple. Cardiovascular: Regular rate. No murmurs. Chest: Clear and unlabored. Abdomen: Soft and nondistended. Extremities: Moves all extremities. ASSESSMENT: 1. Severe hypothyroidism. Her TSH is actually finally improving. It is down to 34, although she is on a very high dose of Synthroid. I expect that she has thyroid antibodies. 2. Left lower lobe pneumonia. 3. Chest pain, resolved. 4. Chronic tobacco abuse. 5. Hypoxic respiratory failure. PLAN: I am going to repeat her Synthroid today. We will recheck her TSH tomorrow. Hopefully home with TSH and her symptoms improve. cc: Manfred Hoskins MD
[2018-10-05] MEDS ORDERED: MIRALAX PO ONE (17:34)
[2018-10-05] MEDS: DESYREL PO SCH (21:27)
[2018-10-05] MEDS: SEROQUEL PO SCH (21:27)
[2018-10-06] MEDS: PRILOSEC PO SCH (06:33)
[2018-10-06] MEDS: SYNTHROID PO SCH (06:33)
[2018-10-06] MEDS: NORCO-5 PO PRN ×2 (06:33→16:18)
[2018-10-06 06:48] LABS: AGAP 9; ALKALINE PHOSPHATASE 75 U/L (32-104); BUN 10 mg/dL (8-22); CHLORIDE 109 mmol/L (98-107); COSMO 287; CREATININE 0.8 mg/dL (0.5-0.9); ESTIMATED GFR > 60; GLUCOSE 83 mg/dL (70-104); GOT 46 U/L (10-30); GPT 29 U/L (10-36); MAGNESIUM 1.9 mg/dL (1.5-2.7); POTASSIUM 4.3 mmol/L (3.5-5.1); SODIUM 145 mmol/L (136-145); TCO2 27 mmol/L (25-35); TOTAL BILIRUBIN < 0.15 mg/dL (0.20-1.00); TOTAL PROTEIN 5.8 g/dL (6.3-8.3)
[2018-10-06 06:49] LABS: FREE T4 1.56 ng/dL (0.93-1.70)
[2018-10-06 07:10] LABS: HEMATOCRIT 23.4 % (37.0-47.0); HEMOGLOBIN 6.8 g/dL (12.0-16.0); MCH 21.9 PG (27-31); MCHC 29.1 g/dL (33-37); MCV 75.5 FL (81-99); MPV 10.8 FL (7.4-10.4); RBC 3.1 XMIL (4.2-5.4); RDW 23.6 % (11.5-14.5); WBC 2.78 X1000 (4.8-10.8)
[2018-10-06 07:11] LABS: TSH 18.53 uIUmL (0.27-4.20)
[2018-10-06] MEDS ORDERED: NS 500 ML IV ONE (07:19)
[2018-10-06] MEDS: ROCEPHIN 1 GM in NS 50 ML IV SCH (08:52)
[2018-10-06] MEDS: ZITHROMAX PO SCH (08:53)
[2018-10-06] MEDS: PLAVIX PO SCH (08:53)
[2018-10-06] MEDS: NEURONTIN PO SCH ×3 (08:53→22:20)
[2018-10-06] MEDS: GEODON PO SCH ×2 (08:53→22:19)
[2018-10-06] MEDS: CYMBALTA PO SCH (08:53)
[2018-10-06] MEDS: XANAX PO PRN ×2 (08:53→22:19)
[2018-10-06] MEDS: CARAFATE PO SCH ×4 (08:53→22:20)
[2018-10-06] MEDS: PRINIVIL PO SCH (08:53)
--- NOTE | 2018-10-06 19:20 | PROGRESS NOTE ---
DATE: 10/06/2018 SUBJECTIVE: The patient states she feels a little bit better but still has pain all over, mainly in her chest. Still has a headache, fatigue. Denies any shortness of breath or palpitations. OBJECTIVE: Vital signs: Temperature is 97.9, pulse 85, respiratory rate 18, BP 109/73. General: Patient is awake, alert. Her color appears improved. HEENT: Normocephalic. Neck: Supple. Cardiovascular: Regular rate. Chest: Clear, nonlabored. Abdomen: Soft, nondistended. Extremities: Moves all extremities. ASSESSMENT: 1. Hypothyroidism. Her TSH is actually down to 18, but each day she has also received IV Synthroid. We will not do the IV today, just do the p.o. dosing and recheck her TSH in the a.m. 2. Left lower lobe pneumonia. 3. Chronic pain. PLAN: We are going to continue antibiotics. Continue Synthroid. Recheck her labs in the morning. Hopefully, she can be discharged home if she improves. cc: Manfred Hoskins MD
[2018-10-06] MEDS: SEROQUEL PO SCH (22:19)
[2018-10-06] MEDS: DESYREL PO SCH (22:20)
[2018-10-07] MEDS: NORCO-5 PO PRN ×2 (05:11→17:54)
[2018-10-07] MEDS: PRILOSEC PO SCH ×2 (05:13→06:20)
[2018-10-07] MEDS: CARAFATE PO SCH ×5 (05:13→20:37)
[2018-10-07] MEDS: SYNTHROID PO SCH ×2 (05:14→06:20)
[2018-10-07 07:35] LABS: AGAP 9; ALBUMIN 3.3 g/dL (3.5-5.0); ALKALINE PHOSPHATASE 82 U/L (32-104); BUN 14 mg/dL (8-22); CALCIUM 8.3 mg/dL (8.8-10.2); CHLORIDE 104 mmol/L (98-107); COSMO 283; CREATININE 0.7 mg/dL (0.5-0.9); ESTIMATED GFR > 60; FREE T4 1.8 ng/dL (0.93-1.70); GLUCOSE 79 mg/dL (70-104); GOT 41 U/L (10-30); GPT 28 U/L (10-36); POTASSIUM 4.6 mmol/L (3.5-5.1); SODIUM 142 mmol/L (136-145); TCO2 30 mmol/L (25-35); TOTAL BILIRUBIN < 0.15 mg/dL (0.20-1.00); TOTAL PROTEIN 6.4 g/dL (6.3-8.3)
[2018-10-07 07:38] LABS: HEMATOCRIT 27.8 % (37.0-47.0); HEMOGLOBIN 8.5 g/dL (12.0-16.0); MCH 23.1 PG (27-31); MCHC 30.6 g/dL (33-37); MCV 75.5 FL (81-99); MPV 10.2 FL (7.4-10.4); RBC 3.68 XMIL (4.2-5.4); RDW 22.4 % (11.5-14.5); WBC 3.76 X1000 (4.8-10.8)
[2018-10-07 07:44] LABS: TSH 11.21 uIUmL (0.27-4.20)
[2018-10-07] MEDS ORDERED: TYLENOL PO PRN (08:33)
[2018-10-07] MEDS: ROCEPHIN 1 GM in NS 50 ML IV SCH (08:36)
[2018-10-07] MEDS: PRINIVIL PO SCH (08:36)
[2018-10-07] MEDS: PLAVIX PO SCH (08:36)
[2018-10-07] MEDS: GEODON PO SCH ×2 (08:36→20:55)
[2018-10-07] MEDS: CYMBALTA PO SCH (08:36)
[2018-10-07] MEDS: NEURONTIN PO SCH ×3 (08:36→20:38)
[2018-10-07] MEDS: ZITHROMAX PO SCH (08:37)
--- NOTE | 2018-10-07 09:23 | Diag Imaging Result Doc PS360 ---
EXAM: CHEST-2 VIEWS HISTORY: hypoxia TECHNIQUE: Chest two views COMPARISON: 10/05/2018 FINDINGS: Interval decrease in the atelectasis and/or infiltrate base. There is a tiny left pleural effusion. The heart is enlarged. No pulmonary edema. The right lung is clear. IMPRESSION: Mild interval improvement Electronically signed by Ang Yoder 10/07/2018 9:21 AM
[2018-10-07] MEDS: XANAX PO PRN ×2 (12:12→21:05)
--- NOTE | 2018-10-07 15:57 | PROGRESS NOTE ---
DATE: 10/07/2018 SUBJECTIVE: Patient still has multiple complaints of chest pressure, cough, congestion, shortness of breath, dyspnea on exertion, fatigue, tiredness, and abdominal pain. The patient has been able to get out of bed a little bit better. PHYSICAL EXAMINATION: Vital signs: Temperature 97.4 degrees, pulse 66, respiratory 18, BP 111/69. General: Patient is awake. She appears in no distress. HEENT: Normocephalic. Neck: Supple. Cardiovascular: Regular rate. Chest: Clear, nonlabored. No crackles. No wheezing. Abdomen: Soft, nondistended. Extremities: Moves all extremities. No edema. ASSESSMENT: 1. Left lower lobe pneumonia. 2. Severe hypothyroidism. TSH had a maximum of 130. Currently is down to 11. 3. Hypoxic respiratory failure. I believe this has resolved as well. We are going to stop her oxygen. 4. Chronic tobacco abuse. 5. Adult failure to thrive with acute anxiety and chronic depression. PLAN: We are going to continue her in the hospital today. Attempt to get out of bed. We are going to check a CT of her chest to make sure this is clear. If so, hopefully she can discharge home this afternoon. If not, certainly by tomorrow. cc: Manfred Hoskins MD
--- NOTE | 2018-10-07 19:20 | Diag Imaging Result Doc PS360 ---
EXAM: CT THORAX W/O CONTRAST 10/07/2018 HISTORY: follow previous [facility] CT TECHNIQUE: This exam was performed using automated exposure control, adjustment of mA or kV according to patient size, and/or use of iterative reconstruction technique. COMMENT: There is a large hiatal hernia. This was also present on the previous examination of 10/02/2018. The pleural fluid collection on the left which was present previously has resolved. There is a pericardial effusion which is slightly larger than on the previous study measuring over 14 mm anteriorly. There is marked improvement in the consolidation present previously in the left lower lobe. Some minimal remaining platelike opacities are present. The pulmonary nodule in the right apex, that adjacent to the anterior minor fissure in the middle lobe, and that of the posterior right upper lobe have not changed significantly. The regional skeleton is stable in appearance. There is a large amount of stool present in the visualized portion of the colon. IMPRESSION: Marked improvement in the left lower lobe pneumonia. Improved left pleural effusion. Slightly worsened pericardial effusion. Electronically signed by Carlos Manuel Laird 10/07/2018 7:18 PM
[2018-10-07] MEDS: DESYREL PO SCH (20:55)
[2018-10-07] MEDS: SEROQUEL PO SCH (20:55)
[2018-10-08] MEDS: SYNTHROID PO SCH (06:42)
[2018-10-08] MEDS: PRILOSEC PO SCH (06:42)
[2018-10-08] MEDS: CARAFATE PO SCH ×4 (06:42→20:20)
[2018-10-08] MEDS: ROCEPHIN 1 GM in NS 50 ML IV SCH (08:12)
[2018-10-08] MEDS: GEODON PO SCH ×2 (08:12→20:19)
[2018-10-08] MEDS: CYMBALTA PO SCH (08:12)
[2018-10-08] MEDS: PLAVIX PO SCH (08:12)
[2018-10-08] MEDS: NEURONTIN PO SCH ×3 (08:13→20:20)
[2018-10-08] MEDS: XANAX PO PRN ×2 (08:13→20:19)
[2018-10-08] MEDS: PRINIVIL PO SCH (08:13)
[2018-10-08] MEDS: ZITHROMAX PO SCH (08:13)
[2018-10-08] MEDS: NORCO-5 PO PRN ×2 (08:13→20:19)
[2018-10-08] MEDS: SEROQUEL PO SCH (20:20)
[2018-10-08] MEDS: DESYREL PO SCH (20:20)
--- NOTE | 2018-10-08 21:39 | PROGRESS NOTE ---
DATE: 10/08/2018 SUBJECTIVE: Patient still complains of chest pain, chest pressure, occasional cough, shortness of breath, still complains of tired and fatigued. She notes that pain medicine would likely help her symptoms. OBJECTIVE: Vital signs: Temperature 97.9, pulse 73, respiratory rate 18, BP 118/56. General: Patient is awake, alert. She is in no respiratory distress. HEENT: Normocephalic. Neck: Supple. Cardiovascular: Regular rate. Chest: Clear, nonlabored. No wheezing. Abdomen: Soft. Extremities: Moves all extremities. ASSESSMENT: 1. Pericardial effusion. Echocardiogram is pending. 2. Left lower lobe pneumonia, improved on recent CT. 3. Hypothyroidism, improved on recent labs. PLAN: If the patient's echocardiogram was normal, we can discharge her home, but certainly feel as though given her pericardial effusion, she needs to stay in the hospital until we perform an echocardiogram. cc: Manfred Hoskins MD
[2018-10-09] MEDS: PRILOSEC PO SCH (06:16)
[2018-10-09] MEDS: SYNTHROID PO SCH (06:16)
[2018-10-09] MEDS: ZOFRAN IV PRN (06:35)
[2018-10-09] MEDS: NEURONTIN PO SCH (08:48)
[2018-10-09] MEDS: PRINIVIL PO SCH (08:48)
[2018-10-09] MEDS: ZITHROMAX PO SCH (08:48)
[2018-10-09] MEDS: ROCEPHIN 1 GM in NS 50 ML IV SCH (08:48)
[2018-10-09] MEDS: CYMBALTA PO SCH (08:48)
[2018-10-09] MEDS: PLAVIX PO SCH (08:48)
[2018-10-09] MEDS: GEODON PO SCH (08:49)
[2018-10-09] MEDS: CARAFATE PO SCH ×2 (08:49→12:15)
[2018-10-09] MEDS: NORCO-5 PO PRN (09:00)
[2018-10-09] MEDS: XANAX PO PRN (09:01)
[2018-10-09 11:53] VITALS: BP 118/80
--- NOTE | 2018-10-09 12:47 | ECHO REPORT ---
ORDER DATE: 10/08/2018 INDICATION FOR THE STUDY: Pericardial effusion. FINDINGS: 1. Right atrium appears normal in size at 3.6 cm. 2. Mild tricuspid regurgitation. RV systolic pressure of 19. 3. Normal RV size and systolic function. 4. Mild pulmonic insufficiency. 5. Normal left atrial size with a dimension of 3.5 cm. 6. No mitral valve prolapse. Mild mitral regurgitation. No evidence of mitral stenosis. 7. Normal LV size, end-diastolic dimension of 5.1. Normal wall thicknesses with a posterior and interventricular septal thickness of 0.9 and 0.8 cm respectively. Normal LV systolic function. Estimated EF of 65 to 70 percent with normal wall motion. 8. Aortic valve opens well. It is trileaflet. No evidence of stenosis or insufficiency. 9. Aorta appears normal in visualized segments. 10. There is a small anterior pericardial effusion with no evidence of tamponade physiology. cc: MD Manfred Yanez MD
--- NOTE | 2018-10-10 03:27 | DISCHARGE SUMMARY ---
ADMISSION DATE: 09/28/2018 DISCHARGE DATE: 10/09/2018 DIAGNOSES: 1. Chest pain. 2. Pericardial effusion. 3. Left lower lobe pneumonia, improving on CT. 4. Hypothyroid, improved. 5. Chronic pain. 6. Chronic tobacco use. 7. History of chronic coronary artery disease status post myocardial infarction. DIAGNOSTICS: 1. 09/28/2018 chest x-ray revealed minimal bibasilar atelectasis versus fibrosis, small right pleural effusion. 2. CT of the chest 10/02/2018 revealed left lower lobe pneumonia, left lower lobe bronchial mucosal thickening and intermittent mucus plugging, very small left pleural effusion. 3. 10/05/2018 chest x-ray reveals faint lower lobe infiltrate which may represent pneumonia or edema, trace left pleural effusion. 4. 10/07/2018 chest x-ray revealed mild interval improvement. There is a tiny left pleural effusion. Heart is enlarged. No pulmonary edema. The right lung is clear. 5. 10/07/2018 CT of the chest revealed marked improvement in left lower lobe pneumonia, improved left pleural effusion, slightly worsened pericardial effusion. 6. 10/08/2018 echocardiogram revealed a small anterior pericardial effusion with no evidence of tamponade physiology, an fraction of 65 to 70 percent with normal wall motion, normal systolic function. HOSPITAL COURSE: Ms Nath presented to the emergency room complaining of chest pain. She ruled out by enzymes and EKG. She underwent a myocardial perfusion stress test which revealed no evidence of abnormal extracardiac uptake. She did have intermittent complaints of chest pain and chest pressure with a cough and shortness of breath which has been chronic for her. She was found to have pneumonia. She was initially treated with Zithromax and Rocephin and has been transitioned over to Omnicef and Zithromax oral on discharge. TSH was 139.2 on admission. Medication was titrated and on the her TSH is 11.21. During the hospitalization, she did have hypotension on the and the having blood pressures in the 70s and 80s systolic. On the , she was down for her stress test and the staff found an empty bottle of Haldol. It was unclear if she took it or not. After this, her blood pressures did increase to the 90s to 140s. She was fatigued on first admission and she complained of constant fatigue and tiredness. This did improve as her TSH dropped. We did discuss the importance of her taking her medication as prescribed. She was found to have a pericardial effusion on CT scan with radiology read on the read slightly larger measuring over 14 mm anteriorly. On the , she underwent an echocardiogram with Cardiology read stating there is a small anterior pericardial effusion with no evidence of tamponade. Today, Ms. Nath feels better. She continues to be tired and fatigued although she states this is less. She says she has less dyspnea on exertion. She is able to get out of bed and up in the room better and she is ready for discharge. DISCHARGE VITAL SIGNS: Blood pressure is 118/80 with a heart rate of 76, respirations 18, temperature is 98.2 degrees with room air saturations 97%. DISCHARGE PHYSICAL EXAMINATION: Cardiovascular: Regular rate and rhythm. S1 and S2 are appreciated. She has no lower extremity edema. Peripheral pulses are palpable x4 extremities. Calves are nontender bilateral. Pulmonary: Breath sounds are clear with no increased work of breathing noted. Gastrointestinal: Abdomen is soft, nontender, nondistended with bowel sounds in all 4 quadrants. DISCHARGE MEDICATIONS: 1. Geodon 40 mg p.o. b.i.d. 2. Trazodone 50 mg p.o. at bedtime. 3. Seroquel 200 mg p.o. daily. 4. Lisinopril 20 mg daily. 5. Levothyroxine 200 mcg daily. 6. Gabapentin 300 mg p.o. t.i.d. 7. Cymbalta 60 mg p.o. daily. 8. Plavix 75 mg p.o. daily. 9. Xanax 1 mg p.o. t.i.d. 10. Zithromax 250 mg p.o. daily x5 days. 11. Omnicef 300 mg p.o. b.i.d. for 5 days. DISPOSITION: She is being discharged home in stable condition with family members. TIME: This is a greater than 30 minute discharge. INSTRUCTIONS: She has been instructed to return to the emergency room or call to be seen sooner for any syncope, dizziness, chest pain, palpitations, any shortness of breath, dyspnea on exertion, any fever, temperature greater than 101, any nausea, vomiting, diarrhea, constipation, black or bloody vomitus or stools, any hematuria, dysuria, frequency, urgency or for any questions or concerns that she may have. FOLLOWUP: She is to call her primary care provider to schedule an appointment to be seen in 2 weeks, sooner if needed as stated above. Dictated by LESLEY Sarah for Manfred Hoskins MD cc: LESLEY Sarah MD Shannon Morgan [facility]
--- NOTE | 2018-10-10 04:33 | DISCHARGE SUMMARY ---
ADMISSION DATE: 09/28/2018 DISCHARGE DATE: 10/09/2018 ADDENDUM: Patient seen and examined by myself. Full note dictated and discussed with nurse practitioner. On discharge, patient is awake, alert. She is still complaining of pain all over. She was noted to be markedly hypothyroid with a TSH at 130. We gave her several doses of IV Synthroid, increased her Synthroid to 400, but decreased her TSH eventually down to 11. She was feeling a lot better on discharge. Thankfully, she had an uneventful hospital course. Echo was normal. CT improved and therefore she will be discharged home. Did Discuss with her that she needs to follow up outpatient with her primary care to recheck her thyroid over the next few days. cc: Manfred Hoskins MD
== END 2018-10-09 15:31 | disposition home or self-care (01) | DRG 313 ==
LOC: P.MEDSURG 20:29 → P.ED 20:29 → OBSVTOIN 20:30
PROVIDERS: ATTEND Family Medicine